=== PATIENT | male | born 2000 | race Caucasian/White ===

== ENCOUNTER 2021-04-11 19:38 | Emergency (ER) | payer MEDICAID, SELFPAY ==
[2021-04-11 19:39] VITALS: BP 106/65; PULSE 86; RESP 16; TEMP 36.6; O2SAT 95; BMI 23.0
[2021-04-11 20:00] VITALS: BP 161/98; PULSE 87; O2SAT 98
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
[2021-04-11] MEDS: ziprasidone 20 mg/mL SDV IM (20:30)
[2021-04-11 21:08] VITALS: BP 166/99; PULSE 89; RESP 14; O2SAT 98
[2021-04-11 21:12] LABS: Basophils # 0.1 10^3/uL (0.0-0.1); Basophils % 1.8 %; Eosinophils # 0.2 10^3/uL (0.0-0.8); Eosinophils % 2.9 %; Hematocrit 47.1 % (42.0-52.0); Hemoglobin 15.6 g/dL (11.7-16.6); Lymphocytes # 2.4 10^3/uL (0.8-4.8); Lymphocytes % 30.8 %; Mean Corpuscular HGB Conc 33.1 g/dL (30.0-36.0); Mean Corpuscular Hemoglobin 30.4 pg (28.0-34.0); Mean Corpuscular Volume 91.6 fL (80-94); Mean Platelet Volume 9.3 fL (7.4-10.4); Monocytes # 0.7 10^3/uL (0.2-0.9); Monocytes % 9.4 %; Neutrophils # 4.22 10^3/uL (1.8-7.7); Neutrophils % 54.7 %; Nucleated Red Blood Cells % 0 %; Platelet Count 237 10^3/cmm (130-400); Red Blood Count 5.14 10^6/uL (4.1-5.3); Red Cell Distribution Width 13.7 % (12.1-15.1); White Blood Count 7.7 10^3/uL (4.0-10.0)
[2021-04-11 21:30] LABS: Alanine Aminotransferase 65 U/L (0-41); Albumin Level 4.5 g/dL (3.5-5.2); Alcohol Level 239 mg/dL (0-10); Alkaline Phosphatase 85 IU/L (40-130); Anion Gap 14.5 (5-19); Aspartate Amino Transferase 40 U/L (0-40); Blood Urea Nitrogen 9 mg/dL (6-20); Calcium 8.8 mg/dL (8.5-10.5); Carbon Dioxide 25 mmol/L (22-29); Chloride 107 mmol/L (98-107); Globulin 2.5 g/dL (1.3-4.6); Glucose 105 mg/dL (65-115); Osmolality Calculated 295 mOsm/kg (285-295); Potassium 3.5 mmol/L (3.5-5.1); Sodium 143 mmol/L (136-145); Total Bilirubin 0.2 mg/dL (0.15-1.2)
[2021-04-11 21:35] LABS: Add Urine Microscopic? NO; Charge for UA Resulting for Rev
[2021-04-11 21:37] LABS: Bilirubin Urine Neg (Negative); Blood Urine Neg (Negative); Glucose Urine UA Norm (Normal); Ketones Urine Negative (Negative); Leukocyte Esterase Urine Negative (Negative); Nitrate Urine Negative (Negative); Protein Urine Neg (Negative); Urine Appearance Clear (CLEAR); Urine Color Yellow (Yellow); Urobilinogen Urine Norm (Negative); pH Urine 6.5 (5-7)
[2021-04-11 21:38] LABS: Acetaminophen < 5.0 ug/mL (10-30); Salicylate < 0.3 mg/dL (3-10)
[2021-04-11 21:46] LABS: Amphetamines Screen Urine Negative (Negative); Barbiturates Screen Urine Negative (Negative); Benzodiazepines Screen Urine Negative (Negative); Cocaine Screen Urine Negative (Negative); Opiate Screen Urine Negative (Negative); PCP Screen Urine Negative (Negative); THC Screen Urine Negative (Negative)
[2021-04-11 22:53] VITALS: BP 139/97; PULSE 103; RESP 22; O2SAT 100
[2021-04-11 23:53] VITALS: BP 144/68; PULSE 73; RESP 17; O2SAT 99
[2021-04-12 00:53] VITALS: BP 108/74; PULSE 80; RESP 16; O2SAT 96
[2021-04-12 01:02] LABS: Alcohol Level 173 mg/dL (0-10)
[2021-04-12 01:53] VITALS: BP 110/60; PULSE 82; RESP 18; O2SAT 95
[2021-04-12 02:02] VITALS: BP 110/60; PULSE 82; RESP 18; O2SAT 95
== END 2021-04-12 01:55 | disposition home or self-care (01) ==
PROVIDERS: Emergency Provider Emergency Medicine; PCP Family Medicine
DX: F10.929 Alcohol use, unspecified with intoxication, unspecified (principal); R45.1 Restlessness and agitation; F17.210 Nicotine dependence, cigarettes, uncomplicated; Y90.7 Blood alcohol level of 200-239 mg/100 ml
CPT/HCPCS: 36415; 80053; 80306; 80307; 81003; 85025; 96372; 99284; J3486; J3490

== ENCOUNTER → 2021-05-13 07:48 | Outpatient (BNVA) | payer MEDICAID, SELFPAY | PROVIDERS: PCP Family Medicine; Visit Provider Psychiatry & Neurology Psychiatry | DX: F32.9 Major depressive disorder, single episode, unspecified (principal); F43.10 Post-traumatic stress disorder, unspecified; F10.20 Alcohol dependence, uncomplicated; F15.10 Other stimulant abuse, uncomplicated | CPT/HCPCS: 90792 ==

== ENCOUNTER → 2021-06-21 15:09 | Outpatient (BNVA) | payer MEDICAID, SELFPAY | PROVIDERS: PCP Family Medicine; Visit Provider Psychiatry & Neurology Psychiatry | DX: F90.9 Attention-deficit hyperactivity disorder, unspecified type (principal); F32.9 Major depressive disorder, single episode, unspecified; F15.10 Other stimulant abuse, uncomplicated; F10.20 Alcohol dependence, uncomplicated; F43.10 Post-traumatic stress disorder, unspecified | CPT/HCPCS: 99214 ==

== ENCOUNTER 2022-01-29 10:17 | Emergency (ER) | payer MEDICAID, SELFPAY ==
[2022-01-29 10:34] VITALS: BP 143/79; PULSE 132; RESP 32; O2SAT 100; BMI 25.1
--- NOTE | 2022-01-29 11:05 | ECG_ITS ---
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 Measurements Intervals [place] Rate: 130 P: 80 AK: 129 QRS: -54 QRSD: 98 T: 69 QT: 310 QTc: 457 Interpretive Statements SINUS TACHYCARDIA INDETERMINATE AXIS LEFT ANTERIOR FASCICULAR BLOCK [QRS AXIS <= -45, QR IN I, RS IN II] MODERATE ST DEPRESSION [0.05+ mV ST DEPRESSION] Compared to ECG 02/19/2018 09:12:38 Indeterminate axis now present Left anterior fascicular block now present ST (T wave) deviation now present Electronically Signed On 01-30-2022 19:30:53 CDT by Kirby Waters M.D. [id number] f
--- NOTE | 2022-01-29 11:07 | ED_ITS ---
HPI - Arrhythmia/Palpitations General: Chief Complaint: Arrhythmia/Palpitations Stated Complaint: body numbness Time Seen by Provider: 01/29/22 10:57 Source: patient Mode of arrival: ambulatory History of Present Illness: 21-year-old male presents emergency room shortly after doing a large amount of methamphetamine. Patient mitts he snorted a large amount of methamphetamines complaining of a rapid heart rate and severe anxiety. His oxygenation and blood pressure are good but he states he feels like he cannot breathe and has a sense of impending doom. MD complaint: rapid heart beat and heart racing Onset (ago): minute(s) Duration: constant Severity: moderate Context: recent drug use Associated symptoms: Reports anxiety, diaphoresis, muscle cramps, nausea and sense of impending doom; Deny cough, paresthesias, pre-syncope, short of breath, syncope or vomiting Review of Systems Const: Reports: diaphoresis ENMT: Denies: throat pain, ear or mastoid pain, nasal discharge or nasal congestion Card: Denies: syncope or pre-syncope Resp: Denies: dyspnea, productive cough or non-productive cough GI: Reports: nausea; Denies: vomiting : Denies: flank pain, dysuria, urinary frequency or urinary urgency Musc: Reports: muscle cramps Skin/Breast: Denies: rash or pruritus Psych: Reports: anxiety PFSH ED PFSH: Medical History ADHD Alcohol use disorder, moderate, dependence Anxiety Depression Major depressive disorder Methamphetamine use 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 Psychiatric care PTSD (post-traumatic stress disorder) Social History Smoking and tobacco status: current every day smoker e-cigarettes Alcohol intake: current Physical Exam Const: GENERAL APPEARANCE: cooperative and anxious OR IENTATION/CONSCIOUSNESS: Yes awake HENMT: COMMON NORMALS: normocephalic, atraumatic, hearing grossly normal bilaterally, external ears normal, EAC's normal, TM's normal bilaterally, Normal nasal mucous membranes and turbinates present, moist oral mucous membranes and oropharynx normal HEAD & SCALP: normocephalic and atraumatic NOSE: Normal nasal mucous membranes and turbinates present EXTERNAL EAR: Yes external ears normal EXTERNAL AUDITORY CANAL: EAC's normal TYMPANIC MEMBRANE: TM's normal bilaterally Eye: COMMON NORMALS: EOMs intact bilaterally, conjunctivae normal and no scleral icterus CONJUNCTIVA: Yes conjunctivae normal Neck/C-Spine: COMMON NORMALS: no JVD Resp: COMMON NORMALS: normal respiratory effort, No retractions, No use of accessory muscles and clear to auscultation bilaterally AUSCULTATION: clear to auscultation bilaterally Cardio: COMMON NORMALS: no JVD, regular rhythm and No murmurs present (Cardio) RATE: tachycardic RHYTHM: regular rhythm GI: COMMON NORMALS: Soft to palpation and No hepatosplenomegaly present AUSCULTATION: Yes normoactive bowel sounds PALPATION: Yes Soft to palpation, No Tenderness to palpation present (GI), No Guarding due to palpation present (GI) and Yes No hepatosplenomegaly present Extremity: COMMON NORMALS: normal to inspection, capillary refill normal, no clubbing, cyanosis or edema, no calf tenderness and no pedal edema Skin: COMMON NORMALS: no rashes or lesions noted GENERAL SKIN EXAM: no rashes or lesions noted Course Vital Signs: Vital signs: Vital Signs Pulse Rate 57 L 01/29/22 13:36 Respiratory Rate 17 01/29/22 13:36 Blood Pressure 148/97 01/29/22 12:42 Pulse Oximetry 99 01/29/22 13:36 MDM - Arrhythmia/Palpitations Medical Decision Making Significant side effects from heavy binge use of methamphetamine. Patient has improved he is feeling much better he has not made any suicidal or homicidal ideation threats he did not intend to harm himself this was just recreational use he does use in a much larger amount than he usually does. Most of the side effects have resolved he still quite anxious. He is not having any acute psychosis he has a family member with him who can watch him closely we will go ahead and discharge home strongly discouraged use of illicit drugs. Medical Records I reviewed the patient's medical records. Lab Data I reviewed the patient's lab results. : 01/29/22 11:15 01/29/22 12:15 Laboratory Results WBC 7.9 10^3/uL (4.0-10.0) 01/29/22 11:15 RBC 5.21 10^6/uL (4.1-5.3) 01/29/22 11:15 Hgb 15.8 g/dL (11.7-16.6) 01/29/22 11:15 Hct 46.2 % (42.0-52.0) 01/29/22 11:15 MCV 88.7 fl (80-94) 01/29/22 11:15 MCH 30.3 pg (28.0-34.0) 01/29/22 11:15 MCHC 34.2 g/dL (30.0-36.0) 01/29/22 11:15 RDW 13.7 % (12.1-15.1) 01/29/22 11:15 Plt Count 269 10^3/cmm (130-400) 01/29/22 11:15 MPV 10.0 fL (7.4-10.4) 01/29/22 11:15 Neut % (Auto) 48.7 % 01/29/22 11:15 Lymph % (Auto) 32.9 % 01/29/22 11:15 [place] % (Auto) 13.9 % 01/29/22 11:15 Eos % (Auto) 2.8 % 01/29/22 11:15 Baso % (Auto) 1.4 % 01/29/22 11:15 Neut # (Auto) 3.84 10^3/uL (1.8-7.7) 01/29/22 11:15 Lymph # (Auto) 2.6 10^3/uL (0.8-4.8) 01/29/22 11:15 [place] # (Auto) 1.1 10^3/uL (0.2-0.9) H 01/29/22 11:15 Eos # (Auto) 0.2 10^3/uL (0.0-0.8) 01/29/22 11:15 Baso # (Auto) 0.1 10^3/uL (0.0-0.1) 01/29/22 11:15 Nucleated RBC % (auto) 0 % 01/29/22 11:15 Nucleated RBCs # 0.0 /100WBC 01/29/22 11:15 Sodium 133 mmol/L (136-145) L 01/29/22 12:15 Potassium 3.2 mmol/L (3.5-5.1) L 01/29/22 12:15 Chloride 98 mmol/L (98-107) 01/29/22 12:15 Carbon Dioxide 19 mmol/L (22-29) L 01/29/22 12:15 Anion Gap 19.2 (5-19) H 01/29/22 12:15 BUN 13 mg/dL (6-20) 01/29/22 12:15 Creatinine 0.8 mg/dL (0.7-1.2) 01/29/22 12:15 GFR Calculation 119.8 mL/min (90-130) 01/29/22 12:15 Glucose 97 mg/dL (65-115) 01/29/22 12:15 Calculated Osmolality 276 mOsm/kg (285-295) L 01/29/22 12:15 Calcium 9.9 mg/dL (8.5-10.5) 01/29/22 12:15 Total Bilirubin 1.0 mg/dL (0.15-1.2) 01/29/22 12:15 AST 28 U/L (0-40) 01/29/22 12:15 ALT 25 U/L (0-41) 01/29/22 12:15 Alkaline Phosphatase 84 IU/L (40-130) 01/29/22 12:15 Total Protein 8.1 g/dL (6.6-8.7) 01/29/22 12:15 Albumin 5.0 g/dL (3.5-5.2) 01/29/22 12:15 Globulin 3.1 g/dL (1.3-4.6) 01/29/22 12:15 Salicylates 1.6 mg/dL (3-10) L 01/29/22 12:15 Acetaminophen < 5.0 ug/mL (10-30) L 01/29/22 12:15 Discharge Plan Discharge Patient Disposition: Home Clinical Impression: Methamphetamine use Condition: Stable Prescriptions: New hydroxyzine HCl 25 mg tablet 25 mg PO Q6H PRN (Reason: anxiety) Qty: 20 0RF No Action atomoxetine [Strattera] 25 mg capsule 25 mg PO QAM 30 Days Qty: 30 3RF Discharge Orders: Discharge ED (Routine); Ordered 01/29/22 Ordered By: Tr Valladares Referrals: Inder Dexter MD [Primary Care Provider] - Discharge Diet: Usual diet Discharge Activity: Resume usual activity Patient Instructions: Opioid Safety Activity Restrictions/Additional Instructions: Abstain from methamphetamine use. Coding Level of Care Code ED Sales Apprentice for Chg Fwd Exam Comprehensive
[2022-01-29] MEDS: famotidine 20 mg/2 mL INJ 40 MG IVP (11:22)
[2022-01-29] MEDS: LORazepam 2 mg/mL INJ 1 mL IVP (11:23)
[2022-01-29 11:24] VITALS: BP 135/81
[2022-01-29] MEDS: lactated ringers 1,000 ML 999 ML IV (11:24)
[2022-01-29] MEDS: cloNIDine 0.1 mg Tablet PO (11:24)
[2022-01-29 11:31] VITALS: BP 135/81; PULSE 106; RESP 15; O2SAT 98
[2022-01-29 11:34] LABS: Basophils # 0.1 10^3/uL (0.0-0.1); Basophils % 1.4 %; Eosinophils # 0.2 10^3/uL (0.0-0.8); Eosinophils % 2.8 %; Hematocrit 46.2 % (42.0-52.0); Hemoglobin 15.8 g/dL (11.7-16.6); Lymphocytes # 2.6 10^3/uL (0.8-4.8); Lymphocytes % 32.9 %; Mean Corpuscular HGB Conc 34.2 g/dL (30.0-36.0); Mean Corpuscular Hemoglobin 30.3 pg (28.0-34.0); Mean Corpuscular Volume 88.7 fl (80-94); Monocytes # 1.1 10^3/uL (0.2-0.9); Monocytes % 13.9 %; Neutrophils # 3.84 10^3/uL (1.8-7.7); Neutrophils % 48.7 %; Nucleated Red Blood Cells % 0 %; Platelet Count 269 10^3/cmm (130-400); Red Blood Count 5.21 10^6/uL (4.1-5.3); Red Cell Distribution Width 13.7 % (12.1-15.1); White Blood Count 7.9 10^3/uL (4.0-10.0)
[2022-01-29 12:42] VITALS: BP 148/97; PULSE 68; RESP 24; O2SAT 98
[2022-01-29 13:14] LABS: Alanine Aminotransferase 25 U/L (0-41); Alkaline Phosphatase 84 IU/L (40-130); Anion Gap 19.2 (5-19); Aspartate Amino Transferase 28 U/L (0-40); Blood Urea Nitrogen 13 mg/dL (6-20); Calcium 9.9 mg/dL (8.5-10.5); Carbon Dioxide 19 mmol/L (22-29); Chloride 98 mmol/L (98-107); Creatinine Clr Calc Pharmacy 158.1101; Globulin 3.1 g/dL (1.3-4.6); Glomerular Filtration Rate 119.8 mL/min (90-130); Glucose 97 mg/dL (65-115); Osmolality Calculated 276 mOsm/kg (285-295); Potassium 3.2 mmol/L (3.5-5.1); Salicylate 1.6 mg/dL (3-10); Sodium 133 mmol/L (136-145); Total Protein 8.1 g/dL (6.6-8.7)
[2022-01-29 13:22] LABS: Acetaminophen < 5.0 ug/mL (10-30)
[2022-01-29 13:36] VITALS: PULSE 57; RESP 17; O2SAT 99
== END 2022-01-29 13:37 | disposition home or self-care (01) ==
PROVIDERS: Emergency Provider Family Medicine; PCP Pediatrics
DX: F15.10 Other stimulant abuse, uncomplicated (principal); F17.290 Nicotine dependence, other tobacco product, uncomplicated
CPT/HCPCS: 80053; 80307; 85025; 93005; 96361; 96374; 96375; 99284; J2060; J3490

== ENCOUNTER 2024-03-30 02:16 | Emergency (ER) | payer MEDICAID, SELFPAY ==
[2024-03-30] VITALS (7 sets, daily range): BP systolic 128–151; BP diastolic 68–106; PULSE 75–114; RESP 17–31; TEMP 37; O2SAT 90–98; BMI 24.8
[2024-03-30 04:44] LABS: Basophils # 0.1 10^3/uL (0.0-0.1); Basophils % 1.4 %; Eosinophils # 0.2 10^3/uL (0.0-0.8); Eosinophils % 2.7 %; Hematocrit 44.8 % (37-53); Mean Corpuscular HGB Conc 32.8 g/dL (30-55); Mean Corpuscular Hemoglobin 31.6 pg (27-33); Mean Corpuscular Volume 96.3 fl (82-101); Mean Platelet Volume 9.4 fL (7.4-10.4); Monocytes # 0.8 10^3/uL (0.2-0.9); Monocytes % 11.5 %; Neutrophils # 3.94 10^3/uL (1.8-7.7); Neutrophils % 55.8 %; Nucleated Red Blood Cells % 0 %; Platelet Count 251 10^3/cmm (157-399); Red Blood Count 4.65 10^6/uL (3.85-5.65); Red Cell Distribution Width 13.4 % (12.1-15.1); White Blood Count 7.06 10^3/uL (3.29-11.43)
[2024-03-30 05:06] LABS: Alanine Aminotransferase 34 U/L (0-41); Albumin Level 3.9 g/dL (3.5-5.2); Alkaline Phosphatase 90 U/L (40-130); Anion Gap 12.9 (5-19); Aspartate Amino Transferase 30 U/L (0-40); Blood Urea Nitrogen 6 mg/dL (6-20); Calcium 8.7 mg/dL (8.5-10.5); Carbon Dioxide 26 mmol/L (22-29); Chloride 102 mmol/L (98-107); Globulin 2.5 g/dL (1.3-4.6); Glomerular Filtration Rate 117.8 mL/min (90-130); Glucose 117 mg/dL (65-115); Osmolality Calculated 285 mOsm/kg (285-295); Sodium 138 mmol/L (136-145); Total Bilirubin 0.2 mg/dL (0.15-1.2); Total Protein 6.4 g/dL (6.6-8.7)
[2024-03-30 05:08] LABS: Acetaminophen < 5.0 ug/mL (10-30); Salicylate < 0.3 mg/dL (3-10)
[2024-03-30 05:09] LABS: Potassium 2.9 mmol/L (3.5-5.1)
[2024-03-30] MEDS: potassium chloride ER 20 mEq Tablet 40 MEQ PO (05:34)
--- NOTE | 2024-08-21 20:09 | ED_ITS ---
HPI - Anxiety 2 General: Chief Complaint: Anxiety Stated Complaint: MHE Time Seen by Provider: 03/30/24 03:57 History of Present Illness: 23-year-old male presents to the emergen cy department for evaluation of anxiety. He woke up this morning feeling very anxious and like he is having a panic attack. He has had panic attacks in the past. He is also just not feeling well and like to have a check up. Related Data Allergies Allergy/AdvReac Type Severity Reaction Status Date / Time Penicillins Allergy na Verified 06/20/24 09:15 poison alexandru extract Allergy rash Verified 06/20/24 09:15 Review of Systems 2 General: Reports: 10 or more systems reviewed and unremarkable except in HPI and below PFSH ED 2 PFSH: Medical History ADHD Major depressive disorder Methamphetamine use Alcohol use disorder, moderate, dependence PTSD (post-traumatic stress disorder) Depression Anxiety 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 Social History Smoking and tobacco/nicotine status: unknown if used tobacco/nicotine Alcohol intake: current Substance/Drug Use: former Physical Exam 2 Const: COMMON NORMALS: no acute distress, patient oriented x3, healthy appearing, alert and well nourished HENMT: COMMON NORMALS: normocephalic HEAD & SCALP: normocephalic Eye: COMMON NORMALS: EOMs intact bilaterally Neck/C-Spine: COMMON NORMALS: full ROM and supple Resp: COMMON NORMALS: normal respiratory effort, No retractions and clear to auscultation bilaterally AUSCULTATION: clear to auscultation bilaterally Cardio: COMMON NORMALS: regular rate, regular rhythm, No gallops present (Cardio) and No murmurs present (Cardio) RATE: regular rate RHYTHM: r egular rhythm GI: COMMON NORMALS: Soft to palpation and non-tender PALPATION: Yes Soft to palpation Extremity: GENERAL: Yes normal exam except as noted Neuro: COMMON NORMALS: patient oriented x3 SENSORIUM/ORIENTATION: Yes alert Skin: COMMON NORMALS: no rashes or lesions noted GENERAL SKIN EXAM: no rashes or lesions noted Course 2 Vital Signs: Vital signs: Vital Signs Temperature 98.6 F 03/30/24 02:20 Pulse Rate 88 03/30/24 05:30 Respiratory Rate 31 H 06/22/24 04:30 Blood Pressure 129/91 03/30/24 05:30 Pulse Oximetry 94 03/30/24 05:30 Oxygen Delivery Me thod Room Air 03/30/24 02:20 MDM - Anxiety Medical Decision Making 23-year-old male present of the emergency emergency apartment for evaluation of anxiety. Initial assessment he did have some tachycardia as well as tachypnea. His initial lab evaluation showed hypokalemia. He received a dose of IV potassium. EKG was unremarkable. return precautions were discussed and the patient was discharged home in stable condition. Lab Data 03/30/24 04:39 03/30/24 04:39 Laboratory Results WBC 7.06 10^3/uL (3.29-11.43) 03/30/24 04:39 RBC 4.65 10^6/uL (3.85-5.65) 03/30/24 04:39 Hgb 14.70 g/dL (11.27-16.99) 03/30/24 04:39 Hct 44.8 % (37-53) 03/30/24 04:39 MCV 96.3 fl (82-101) 03/30/24 04:39 MCH 31.6 pg (27-33) 03/30/24 04:39 MCHC 32.8 g/dL (30-55) 03/30/24 04:39 RDW 13.4 % (12.1-15.1) 03/30/24 04:39 Plt Count 251 10^3/cmm (157-399) 03/30/24 04:39 MPV 9.4 fL (7.4-10.4) 03/30/24 04:39 Neut % (Auto) 55.8 % 03/30/24 04:39 Lymph % (Auto) 28.0 % 03/30/24 04:39 [place] % (Auto) 11.5 % 03/30/24 04:39 Eos % (Auto) 2.7 % 03/30/24 04:39 Baso % (Auto) 1.4 % 03/30/24 04:39 Neut # (Auto) 3.94 10^3/uL (1.8-7.7) 03/30/24 04:39 Lymph # (Auto) 2.0 10^3/uL (0.8-4.8) 03/30/24 04:39 [place] # (Auto) 0.8 10^3/uL (0.2-0.9) 03/30/24 04:39 Eos # (Auto) 0.2 10^3/uL (0.0-0.8) 03/30/24 04:39 Baso # (Auto) 0.1 10^3/uL (0.0-0.1) 03/30/24 04:39 Nucleated RBC % (auto) 0 % 03/30/24 04:39 Nucleated RBCs # 0.0 /100WBC 03/30/24 04:39 Sodium 138 mmol/L (136-145) 03/30/24 04:39 Potassium 2.9 mmol/L (3.5-5.1) L 03/30/24 04:39 Chloride 102 mmol/L (98-107) 03/30/24 04:39 Carbon Dioxide 26 mmol/L (22-29) 03/30/24 04:39 Anion Gap 12.9 (5-19) 03/30/24 04:39 BUN 6 mg/dL (6-20) 03/30/24 04:39 Creatinine 0.8 mg/dL (0.7-1.2) 03/30/24 04:39 GFR Calculation 117.8 mL/min (90-130) 03/30/24 04:39 Glucose 117 mg/dL (65-115) H 03/30/24 04:39 Calculated Osmolality 285 mOsm/kg (285-295) 03/30/24 04:39 Calcium 8.7 mg/dL (8.5-10.5) 03/30/24 04:39 Total Bilirubin 0.2 mg/dL (0.15-1.2) 03/30/24 04:39 AST 30 U/L (0-40) 03/30/24 04:39 ALT 34 U/L (0-41) 03/30/24 04:39 Alkaline Phosphatase 90 U/L (40-130) 03/30/24 04:39 Total Protein 6.4 g/dL (6.6-8.7) L 03/30/24 04:39 Albumin 3.9 g/dL (3.5-5.2) 03/30/24 04:39 Globulin 2.5 g/dL (1.3-4.6) 03/30/24 04:39 Salicylates < 0.3 mg/dL (3-10) L 03/30/24 04:39 Acetaminophen < 5.0 ug/mL (10-30) L 03/30/24 04:39 No radiology studies performed this visit Discharge Plan Discharge Patient Disposition: Home Clinical Impression: Acute anxiety, Suicidal ideation, Acute hypokalemia Condition: Stable Discharge Orders: Discharge ED (Routine); Ordered 03/30/24 Ordered By: Edilson Law Referrals: Inder Dexter MD [Primary Care Provider] - Discharge Diet: Advance as tolerated Discharge Activity: Increase activity as tolerated Patient Instructions: Hypokalemia (ED), Anxiety (ED), Opioid Safety, Pain Management Activity Restrictions/Additional Instructions: Please return to the emergency department if you have any new symptoms of anxiety or depression that are leading you to have thoughts of suicide or homicide. Please follow-up with your primary care physician to discuss starting medications to help with your anxiety and depression. 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
== END 2024-03-30 05:45 | disposition home or self-care (01) ==
PROVIDERS: Emergency Provider General Practice; PCP Pediatrics
DX: F41.8 Other specified anxiety disorders (principal); R45.851 Suicidal ideations; E87.6 Hypokalemia
CPT/HCPCS: 80053; 80307; 85025; 99283

== ENCOUNTER 2024-03-31 02:53 | Emergency (ER) | payer MEDICAID, SELFPAY ==
[2024-03-31 03:12] VITALS: BP 129/78; PULSE 82; RESP 16; TEMP 36.6; O2SAT 100; BMI 24.7
--- NOTE | 2024-03-31 03:14 | ECG_ITS ---
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 Measurements Intervals [place] Rate: 82 P: 55 MO: 131 QRS: -9 QRSD: 103 T: 31 QT: 364 QTc: 426 Interpretive Statements SINUS RHYTHM WITH SINUS ARRHYTHMIA Compared to ECG 01/29/2022 10:38:14 Sinus tachycardia no longer present Indeterminate axis no longer present Left anterior fascicular block no longer present ST (T wave) deviation no longer present Electronically Signed On 03-31-2024 10:01:23 CDT by Billy Rivera M.D. [email or web address]/store/NU/[id number] f
[2024-03-31 03:28] VITALS: PULSE 79; RESP 16; O2SAT 99
[2024-03-31] MEDS: ketorolac 30 mg/mL INJ IM (03:56)
[2024-03-31] MEDS: ziprasidone 20 mg/mL SDV IM (03:57)
[2024-03-31] MEDS: water for injection-sterile 10 ML 1.19999999999999996 ML (03:59)
--- NOTE | 2024-03-31 04:56 | ED_ITS ---
HPI - Headache General: Chief Complaint: Headache Stated Complaint: confused, shaky weak Time Seen by Provider: 03/31/24 03:31 History of Present Illness: 23-year-old intoxicated male complaining of headache and chest discomfort. He says he has a history of anxiety. He takes medication for headaches from time to time. He was seen about 24 hours ago in this ER for anxiety symptoms. Laboratory testing was completed at that time. 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 PTSD (post-traumatic stress disorder) Social History Smoking and tobacco/nicotine status: current every day tobacco/nicotine user e- cigarettes Alcohol intake: current Substance/Drug Use: former Physical Exam Const: COMMON NORMALS: no acute distress GENERAL APPEARANCE: cooperative; not ill appearing and not frail appearing HENMT: COMMON NORMALS: normocephalic, atraumatic and Normal external nose present HEAD & SCALP: normocephalic and atraumatic FACE & SINUS: normal facial exam and face symmetric NOSE: Normal external nose present Eye: COMMON NORMALS: Equal, round and reactive pupils present and EOMs intact bilaterally PUPIL: Yes Equal, round and reactive pupils present Neck/C-Spine: GENERAL: Yes trachea midline Chest: CHEST: Yes Symmetrical chest wall rise Resp: COMMON NORMALS: normal respiratory effort, No retractions, No use of accessory muscles and clear to auscultation bilaterally AUSCULTATION: clear to auscultation bilaterally Cardio: COMMON NORMALS: regular rate and regular rhythm RATE: regular rate RHYTHM: regular rhythm GI: COMMON NORMALS: Normal to inspection, nondistended, normoactive bowel sounds present Extremity: COMMON NORMALS: no pedal edema Neuro: SUZAN COMA SCALE: document GCS findings Suzan coma scale eye opening: Spontaneous Suzan coma scale verbal response: Confused Suzan coma scale motor response: Obey commands Suzan coma scale total score: 14 SENSORY EXAM: Yes extremities (intact) Psych: COMMON NORMALS: speech normal SPEECH: Yes normal speech Skin: COMMON NORMALS: no rashes or lesions noted GENERAL SKIN EXAM: no rashes or lesions noted Course Vital Signs: Vital signs: Vital Signs Temperature 97.9 F 03/31/24 03:12 Pulse Rate 79 03/31/24 03:28 Respiratory Rate 16 03/31/24 03:28 Blood Pressure 129/78 03/31/24 03:12 Pulse Oximetry 99 03/31/24 03:28 Oxygen Delivery Me thod Room Air 03/31/24 03:12 MDM - Headache Medical Decision Making The patient's EKG shows a sinus arrhythmia with a rate of 80, normal axis normal intervals and no ST wave changes. His vitals are normal. He appears intoxicated on exam to some degree. He is given injections of Toradol for his headache, and Geodon for anxiety. He is resting comfortably. No more complaints of headache or chest discomfort. Laboratory was in the last 24 hours showed hypokalemia which was treated. Will allow discharge. All radiology interpretation(s) finalized by discharge Discharge Plan Discharge Patient Disposition: Home Clinical Impression: Headache Condition: Stable Prescriptions: No Action mupirocin 2 % ointment 1 applic topical TID Qty: 22 0RF Discharge Orders: Discharge ED (Routine); Ordered 03/31/24 Ordered By: Oswaldo Bonilla Referrals: Inder Dexter MD [Primary Care Provider] - Patient Instructions: Acute Headache (ED), Opioid Safety, Pain Management Activity Restrictions/Additional Instructions: Call your doctor on Monday for an appointment this week. Coding Level of Care Code ED Ice Cream Machine Operator for Sea Christy
[2024-03-31 05:41] VITALS: BP 134/76; PULSE 62; RESP 14; O2SAT 98
== END 2024-03-31 06:30 | disposition home or self-care (01) ==
PROVIDERS: Emergency Provider Emergency Medicine; PCP Pediatrics
DX: R51.9 Headache, unspecified (principal); F17.290 Nicotine dependence, other tobacco product, uncomplicated
CPT/HCPCS: 93005; 96372; 99284; J1885; J3486

== ENCOUNTER 2024-04-22 16:10 | Emergency (ER) | payer MEDICAID, SELFPAY ==
[2024-04-22 16:23] VITALS: BP 136/85; PULSE 123; RESP 18; TEMP 37; O2SAT 97; BMI 23.0
[2024-04-22 17:57] LABS: Basophils # 0.1 10^3/uL (0.0-0.1); Basophils % 1.6 %; Eosinophils # 0.1 10^3/uL (0.0-0.8); Eosinophils % 0.9 %; Hematocrit 46.9 % (37-53); Lymphocytes # 1.9 10^3/uL (0.8-4.8); Lymphocytes % 23.7 %; Mean Corpuscular HGB Conc 34.8 g/dL (30-55); Mean Platelet Volume 9.9 fL (7.4-10.4); Monocytes # 1.3 10^3/uL (0.2-0.9); Monocytes % 16.2 %; Neutrophils # 4.56 10^3/uL (1.8-7.7); Neutrophils % 57.3 %; Nucleated Red Blood Cells % 0 %; Platelet Count 302 10^3/cmm (157-399); Red Cell Distribution Width 12.9 % (12.1-15.1); White Blood Count 7.96 10^3/uL (3.29-11.43)
[2024-04-22 18:11] LABS: Alanine Aminotransferase 39 U/L (0-41); Albumin Level 4.6 g/dL (3.5-5.2); Alcohol Level 162 mg/dL (0-10); Alkaline Phosphatase 90 U/L (40-130); Anion Gap 17.6 (5-19); Aspartate Amino Transferase 38 U/L (0-40); Blood Urea Nitrogen 6 mg/dL (6-20); Calcium 9.3 mg/dL (8.5-10.5); Carbon Dioxide 24 mmol/L (22-29); Chloride 106 mmol/L (98-107); Creatinine Clr Calc Pharmacy 171.3984; Globulin 2.6 g/dL (1.3-4.6); Glomerular Filtration Rate 137.4 mL/min (90-130); Glucose 105 mg/dL (65-115); Osmolality Calculated 296 mOsm/kg (285-295); Potassium 3.6 mmol/L (3.5-5.1); Sodium 144 mmol/L (136-145); Total Bilirubin 0.2 mg/dL (0.15-1.2); Total Protein 7.2 g/dL (6.6-8.7)
[2024-04-22 18:18] LABS: Acetaminophen < 5.0 ug/mL (10-30); Salicylate < 0.3 mg/dL (3-10)
== END 2024-04-22 19:21 | disposition left against medical advice (07) ==
PROVIDERS: Emergency Medicine; Emergency Provider Family Medicine; PCP Pediatrics
DX: Z53.21 Procedure and treatment not carried out due to patient leaving prior to being seen by health care provider (principal)
CPT/HCPCS: 36415; 80053; 80307; 85025

== ENCOUNTER 2025-02-21 05:51 | Emergency (ER) | payer BC, MEDICAID, SELFPAY ==
[2025-02-21 06:04] VITALS: BP 156/103; PULSE 117; RESP 18; TEMP 36.6; O2SAT 98; BMI 23.0
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
[2025-02-21] MEDS: tetanus-dipt-pertussis 0.5 mL SDV IM (06:17)
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
[2025-02-21 06:48] LABS: Basophils # 0.1 10^3/uL (0.0-0.1); Basophils % 1.3 %; Eosinophils # 0.2 10^3/uL (0.0-0.8); Eosinophils % 1.9 %; Hematocrit 44.5 % (37-53); Lymphocytes # 1.4 10^3/uL (0.8-4.8); Lymphocytes % 14.6 %; Mean Corpuscular HGB Conc 33.5 g/dL (30-55); Mean Corpuscular Hemoglobin 31.7 pg (27-33); Mean Corpuscular Volume 94.7 fl (82-101); Monocytes # 1.3 10^3/uL (0.2-0.9); Monocytes % 13.6 %; Neutrophils # 6.43 10^3/uL (1.8-7.7); Neutrophils % 68.2 %; Nucleated Red Blood Cells % 0 %; Platelet Count 251 10^3/cmm (157-399); Red Cell Distribution Width 13.6 % (12.1-15.1); White Blood Count 9.43 10^3/uL (3.29-11.43)
[2025-02-21 07:02] VITALS: BP 141/87; PULSE 108; O2SAT 96
[2025-02-21 07:07] LABS: Alanine Aminotransferase 55 U/L (0-41); Albumin Level 4.5 g/dL (3.5-5.2); Alkaline Phosphatase 102 U/L (40-130); Anion Gap 18.5 (5-19); Aspartate Amino Transferase 60 U/L (0-40); Blood Urea Nitrogen 6 mg/dL (6-20); Calcium 9.1 mg/dL (8.5-10.5); Carbon Dioxide 22 mmol/L (22-29); Chloride 102 mmol/L (98-107); Globulin 2.8 g/dL (1.3-4.6); Glomerular Filtration Rate 136.3 mL/min (90-130); Glucose 95 mg/dL (65-115); Osmolality Calculated 285 mOsm/kg (285-295); Potassium 3.5 mmol/L (3.5-5.1); Sodium 139 mmol/L (136-145); Total Bilirubin 0.3 mg/dL (0.15-1.2); Total Protein 7.3 g/dL (6.6-8.7)
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
[2025-02-21] MEDS: iohexol 350 mg/mL 500 mL Btl (per mL) IV (07:30)
[2025-02-21 07:50] LABS: Bilirubin Urine Negative (Negative); Blood Urine Negative (Negative); Glucose Urine UA Negative (Normal); Ketones Urine Negative (Negative); Leukocyte Esterase Urine Negative (Negative); Nitrate Urine Negative (Negative); Protein Urine Negative (Negative); Specific Gravity, Urine 1.013 (1.005-1.030); Urine Appearance Clear (CLEAR); Urine Color Yellow (Yellow); Urobilinogen Urine 0.2 mg/dL (Negative); pH Urine 7.5 (5-7)
[2025-02-21 07:52] LABS: Add Urine Microscopic? YES; Bacteria Urine None Seen /hpf; Hyaline Casts Urine 0-4 /lpf; RBC Urine 0-2 /hpf (0-2); Squamous Epithelial Cell Urine 0-5 /hpf (0-5); WBC Urine 0-5 /hpf (0-5)
[2025-02-21 08:19] VITALS: BP 133/97; PULSE 92; O2SAT 100
== END 2025-02-21 08:20 | disposition home or self-care (01) ==
PROVIDERS: Emergency Provider Family Medicine; PCP Family Medicine
DX: S22.32XA Fracture of one rib, left side, initial encounter for closed fracture (principal); V23.41XA Electric (assisted) bicycle driver injured in collision with car, pick-up truck or van in traffic accident, initial encounter
CPT/HCPCS: 70450; 73630; 74177; 80053; 81001; 85025; 90715; 99285